=== PATIENT | female | born 1995 | race Caucasian/White ===

== ENCOUNTER 2016-08-01 16:09 | Emergency (ER) | payer OTHER ==
[~2016-08-01] VITALS: Ht 180.3 cm; Wt 87.0 kg
[~2016-08-01 16:09] MED LIST: BCPILLS PO
[2016-08-01 16:27] VITALS: TEMP 36.7; Ht 180.3 cm; Wt 87.0 kg
[2016-08-01 17:16] LABS: BASO % 0.2 %; BASO ABS # 0.01 K/uL (0-0.2); COMPLETE YES; EOS % 1.5 %; HEMATOCRIT 39.6 % (37-47); LYMPH % 37.8 %; LYMPH ABS # 2.27 K/uL (1.2-3.4); MEAN CELL VOLUME 90.2 fL (80-100); MEAN CORPUSCULAR HEMOGLOBIN 30.1 pg (25-34); MEAN CORPUSCULAR HGB CONC 33.3 g/dl (32-36); MEAN PLATELET VOLUME 9.5 fL (7.4-10.4); MONO % 8.5 %; PLATELET COUNT 352 K/uL (130-400); RED BLOOD COUNT 4.39 M/uL (4.2-5.4); WHITE BLOOD COUNT 6.01 K/uL (4.8-10.8)
[2016-08-01 17:27] LABS: URINE APPEARANCE CLEAR (CLEAR); URINE BILIRUBIN NEG (NEG); URINE COLOR YELLOW; URINE NITRITE NEG (NEG); URINE SPECIFIC GRAVITY 1.019 (1.000-1.030); UROBILINOGEN NEG (NEG); ZZUR CULT IF INDIC CLEAN CATCH NO
[2016-08-01 17:28] LABS: MANUAL MICROSCOPIC REQUIRED? NO; REVIEW REQ? NO
[2016-08-01 17:40] LABS: BUN/CREATININE RATIO 12.9 (10-20); CALCIUM 9.6 mg/dl (8.5-10.1); CREATININE 0.87 mg/dl (0.60-1.20); POTASSIUM 3.6 mmol/L (3.5-5.1)
[2016-08-01 17:43] LABS: ALB/GLOB RATIO 0.9 (0.9-2)
--- NOTE | 2016-08-01 19:02 | DIAGNOSTIC IMAGING REPORT ---
PELVIC ULTRASOUND CLINICAL HISTORY: Right lower quadrant pain. COMPARISON STUDY: None. TECHNIQUE: Transabdominal and transvaginal sonography of the pelvis was performed. FINDINGS: The uterus measures 7.2 x 3 x 4.7 cm. The endometrium measures 4 mm in thickness. The ovaries are normal. The right measures 2.8 x 1.6 x 1.7 cm and the left measures 2.9 x 1.8 x 1.8 cm. Color flow is identified within each ovary. There is trace fluid which is likely physiologic. IMPRESSION: Normal pelvic ultrasound. Electronically signed by: Dion Alarcon M.D. 08/01/2016 7:00 PM Dictated Date/Time: 08/01/2016 6:59 PM
[2016-08-01 19:28] VITALS: BP 133/88; PULSE 66; O2SAT 98
--- NOTE | 2016-08-01 19:42 | EMERGENCY ROOM VISIT NOTE ---
History First contact with patient: 16:29 Chief Complaint: ABDOMINAL PAIN Stated Complaint: PAIN IN ABDOMEN- S REFERRED Nursing Triage Summary: RLQ pain for days no n/v/d no urinary complaints History of Present Illness The patient is a 21 year old female who presents to the Emergency Room with complaints of right lower quadrant abdominal discomfort. The patient states that for the past 5 days, she has had a mild discomfort in her right lower quadrant. She states the pain is not severe and describes it more as an uncomfortable, pressure-like feeling. She rates the discomfort a 4/10. She states it is slightly worse with walking. She denies any associated nausea, vomiting, urinary symptoms, abnormal vaginal discharge, diarrhea or constipation. She denies any fevers. She was seen at [facility] today and sent here. The patient takes control pills and states that she is due to start her menstrual period last week. She has not taken any medication at home for pain. She denies any history of abdominal surgery. She denies any history of ovarian cyst or torsion. Review of Systems A complete 10-point Review of Systems was discussed with the patient, with pertinent positives and negatives listed in the History of Present Illness. All remaining Review of Systems questions can be considered negative unless otherwise specified. Past Medical/Surgical History Medical Problems: (1) No Known Active Medical Problems Surgical Problems: (1) History of tonsillectomy Family History No significant family history Social History Smoking Status: Never Smoker Alcohol Use: occasionally Marital Status: single Housing Status: lives with friends Occupation Status: [employer] student Current/Historical Medications Scheduled Control Pills ( Control Pills), 1 TAB PO DAILY Allergies Coded Allergies: No Known Allergies (Unverified , 08/01/16) Physical Exam Vital Signs Date Time Temp Pulse Resp B/P Pulse Ox O2 Delivery O2 Flow Rate FiO2 08/01/16 19:28 66 16 133/88 98 Room Air 08/01/16 17:53 64 18 122/78 98 08/01/16 16:27 36.7 98 16 133/82 98 Room Air Physical Exam VITALS: Vitals are noted on the nurse's note and reviewed by myself. Vital signs stable. GENERAL: This is a 21-year-old female, in no acute distress, nondiaphoretic, well-developed well-nourished. SKIN: Capillary reflex less than 2 seconds. HEART: Regular rate and rhythm without murmurs gallops or rubs. LUNGS: Clear to auscultation bilaterally without wheezes, rales or rhonchi. ABDOMEN: Positive bowel sounds x 4. Soft, nondistended. Minimal tenderness to palpation over the right lower quadrant. No guarding or rebound tenderness. Negative Rovsing sign. MUSCULOSKELETAL: No CVA tenderness. NEURO: Patient was alert and oriented to person place and time. Medical Decision & Procedures ER Provider Diagnostic Interpretation: PELVIC ULTRASOUND CLINICAL HISTORY: Right lower quadrant pain. COMPARISON STUDY: None. TECHNIQUE: Transabdominal and transvaginal sonography of the pelvis was performed. FINDINGS: The uterus measures 7.2 x 3 x 4.7 cm. The endometrium measures 4 mm in thickness. The ovaries are normal. The right measures 2.8 x 1.6 x 1.7 cm and the left measures 2.9 x 1.8 x 1.8 cm. Color flow is identified within each ovary. There is trace fluid which is likely physiologic. IMPRESSION: Normal pelvic ultrasound. Laboratory Results 08/01/16 17:00 Red Blood Count 4.39, Mean Corpuscular Volume 90.2, Mean Corpuscular Hemoglobin 30.1, Mean Corpuscular Hemoglobin Concent 33.3, Mean Platelet Volume 9.5, Neutrophils (%) (Auto) 52.0, Lymphocytes (%) (Auto) 37.8, Monocytes (%) (Auto) 8.5, Eosinophils (%) (Auto) 1.5, Basophils (%) (Auto) 0.2, Neutrophils # (Auto) 3.13, Lymphocytes # (Auto) 2.27, Monocytes # (Auto) 0.51, Eosinophils # (Auto) 0.09, Basophils # (Auto) 0.01 08/01/16 17:00 Test 08/01/16 17:00 White Blood Count 6.01 K/uL (4.8-10.8) Red Blood Count 4.39 M/uL (4.2-5.4) Hemoglobin 13.2 g/dL (12.0-16.0) Hematocrit 39.6 % (37-47) Mean Corpuscular Volume 90.2 fL (80-100) Mean Corpuscular Hemoglobin 30.1 pg (25-34) Mean Corpuscular Hemoglobin Concent 33.3 g/dl (32-36) Platelet Count 352 K/uL (130-400) Mean Platelet Volume 9.5 fL (7.4-10.4) Neutrophils (%) (Auto) 52.0 % Lymphocytes (%) (Auto) 37.8 % Monocytes (%) (Auto) 8.5 % Eosinophils (%) (Auto) 1.5 % Basophils (%) (Auto) 0.2 % Neutrophils # (Auto) 3.13 K/uL (1.4-6.5) Lymphocytes # (Auto) 2.27 K/uL (1.2-3.4) Monocytes # (Auto) 0.51 K/uL (0.11-0.59) Eosinophils # (Auto) 0.09 K/uL (0-0.5) Basophils # (Auto) 0.01 K/uL (0-0.2) RDW Standard Deviation 41.8 fL (36.4-46.3) RDW Coefficient of Variation 12.8 % (11.5-14.5) Immature Granulocyte % (Auto) 0.0 % Immature Granulocyte # (Auto) 0.00 K/uL (0.00-0.02) Urine Color YELLOW Urine Appearance CLEAR (CLEAR) Urine pH 5.0 (4.5-7.5) Urine Specific [place] 1.019 (1.000-1.030) Urine Protein NEG (NEG) Urine Glucose (UA) NEG (NEG) Urine Ketones NEG (NEG) Urine Occult Blood NEG (NEG) Urine Nitrite NEG (NEG) Urine Bilirubin NEG (NEG) Urine Urobilinogen NEG (NEG) Urine Leukocyte Esterase NEG (NEG) Urine Test NEG (NEG) Anion Gap 5.0 mmol/L (3-11) Est Creatinine Clear Calc Drug Dose 124.8 ml/min Estimated GFR () 110.4 Estimated GFR (Non- 95.2 BUN/Creatinine Ratio 12.9 (10-20) Calcium Level 9.6 mg/dl (8.5-10.1) Total Bilirubin 0.4 mg/dl (0.2-1) Aspartate Amino Transf (AST/SGOT) 15 U/L (15-37) Alanine Aminotransferase (ALT/SGPT) 19 U/L (12-78) Alkaline Phosphatase 52 U/L (45-117) Total Protein 8.4 gm/dl (6.4-8.2) Albumin 3.9 gm/dl (3.4-5.0) Globulin 4.5 gm/dl (2.5-4.0) Albumin/Globulin Ratio 0.9 (0.9-2) ED Course The patient was evaluated as above. Labs were drawn and IV access was obtained. Patient refused any analgesics. Pelvic ultrasound was performed and read by radiology as above. Patient was reevaluated and had no change in her symptoms. She was not in any significant discomfort at this time. Discharge instructions were reviewed with the patient. The patient verbalized understanding of my assessment and treatment plan and was discharged home in good condition. Medical Decision Differential diagnosis includes appendicitis, cholecystitis, gastroenteritis, colitis, ovarian cyst, ovarian torsion, musculoskeletal pain, urinary tract infection, PID, among others. The patient is a 21-year-old female who presents today complaining of right lower quadrant abdominal pain. Labs revealed no leukocytosis, anemia or concerning electrolyte abnormality. Urinalysis was not suggestive of infection. Urine was negative. Pelvic ultrasound was performed and was unremarkable. Patient had minimal tenderness on examination. Given that the patient has had this discomfort for 5 days, I would certainly expect is a leukocytosis, vomiting or fevers if she had an appendicitis. I do not feel that she will require a CT scan. A I did discuss options of care including CT scan versus observation with the patient and she prefers to be discharged home and return if her symptoms worsen. Abdominal exam was also performed by Dr. Laguerre, ED attending, who agreed with this assessment and treatment plan. The patient verbalized her understanding of the workup today and treatment plan. Based on the patient's presentation and work up, I feel the patient is stable for outpatient treatment. The patient was educated to the emergency department for any worsening of their current condition or new/concerning symptoms. She will follow-up with S as needed. Impression Primary Impression: RLQ abdominal pain Departure Information Dispostion Home / Self-Care Condition GOOD Referrals No Doctor, Assigned (PCP) Patient Instructions [facility] Additional Instructions You have been treated in the Emergency Department your Abdominal Pain. Laboratory results and imaging studies have ruled out any emergent causes for your abdominal pain which would warrant admission or surgery. For pain control, you can use the following [id number] medicines (if >12 yo): - Regular strength (325mg/tab) Tylenol (acetaminophen) 2 tabs every 4-6 hours as needed. Do not exceed 12 tablets in a 24 hour period. Avoid taking more than 4 grams (4000 mg) of Tylenol per day. This includes any other sources of acetaminophen you may take on a regular basis. - Regular strength (200 mg/tab) Advil (ibuprofen) 1-2 tabs every 4-6 hours as needed. Do not exceed a dose of 3200 mg per day. Drink plenty of water and stay well hydrated. Follow-up with [facility] within 3-4 days. Return to the emergency department with worsening abdominal pain, fevers, vomiting or any new/concerning symptoms.
--- NOTE | 2016-08-01 21:45 | EMERGENCY ROOM VISIT NOTE ---
ED Visit Note First contact with patient: 16:29 21-year-old female with right lower quadrant abdominal pain was evaluated for right lower quadrant abdominal pain by Jennifer Ortiz PA-C. Please see her note. I also independently evaluated the patient. The patient had an ultrasound and other tests which were felt to be negative for acute appendicitis. Patient does not appear to have an ovarian torsion. Patient will be treated symptomatically. She is to return here if pain is getting worse.
== END 2016-08-01 19:50 | disposition home or self-care (01) ==
LOC: C.EDB 16:10 → C.EDA 19:50
DX: R10.31 Right lower quadrant pain (principal)